=== PATIENT | male | born 1950 | race Caucasian/White ===

== ENCOUNTER 2020-05-28 19:52 | Inpatient (IN) | payer OTHER ==
[~2020-05-28] VITALS: Ht 180.3 cm; Wt 115.2 kg
[2020-05-28 21:41] LABS: Basophils # (auto) 0 10 ^3/uL (0-0.2); Basophils % (auto) 0.3 % (0.0-2.0); Eosinophils # (auto) 0.1 10 ^3/uL (0-0.8)
[2020-05-28 21:43] LABS: Eosinophils % (auto) 0.8 % (0.0-7.0); Hematocrit 23.9 % (41.0-53.0); Mean Corpuscular Hgb Conc. 33.4 g/dL (32.0-36.0); Monocytes # (auto) 0.6 10 ^3/uL (0-1.3); Monocytes % (auto) 3.8 % (0.0-12.0); Neutrophils # (auto) 13.2 10 ^3/uL (1.6-8.6); Neutrophils % (auto) 88.1 % (37.0-80.0); Nucleated Red Blood Cells % 0.1 %; Platelet Count (auto) 126 10^3/uL (140-450); Red Blood Cells 2.28 10^6/uL (4.5-5.90); Red Cell Distribution Width 18.4 % (11.8-14.3)
[2020-05-28 21:52] LABS: Albumin 2.2 g/dL (3.4-5.0); BUN/Creatinine Ratio 10.8; Calcium 7.5 mg/dL (8.5-10.1); Potassium 4.3 mmol/L (3.5-5.1)
[2020-05-28 21:55] LABS: Bilirubin, Total 0.6 mg/dL (0.2-1.0); Lactic Acid w/Reflex 6.5 mmol/L (0.4-2.0); Total Protein 4.9 g/dL (6.4-8.2)
[2020-05-28] MEDS ORDERED: VANCOMYCIN 1GM/250ML 250 ML IV ONE (22:15)
[2020-05-28] MEDS ORDERED: SODIUM CHLORIDE 0.9% 1,000 ML IV ONE (22:15)
[2020-05-28 22:36] LABS: INR 1.13 (0.9-1.15); Partial Thromboplastin Time 34.2 sec (23.0-31.2)
[2020-05-28] MEDS ORDERED: PANTOPRAZOLE 40mg/50ML NS AE 50 ML IV ONE (23:00)
[2020-05-28] MEDS ORDERED: PANTOPRAZOLE 40 MG/10 ML VIAL INJ IV ONE (23:00)
[2020-05-28 23:30] VITALS: BP 100/52
[2020-05-28] MEDS ORDERED: PIPERACILLIN-TAZOB 3.375GM 100 ML IV ONE (23:30)
[2020-05-28 23:45] VITALS: BP 97/50
[2020-05-29] VITALS (8 sets, daily range): BP systolic 97–139; BP diastolic 39–96
[2020-05-29] MEDS ORDERED: ALBUMIN 5% 250 ML IV ONE (05:15)
[2020-05-29] MEDS ORDERED: NITROGLYCERIN 0.4 MG SL TAB SL PRN (05:15)
[2020-05-29] MEDS ORDERED: VANCOMYCIN PER PHARMACY 0 MG IV SCH (05:15)
[2020-05-29] MEDS ORDERED: ONDANSETRON HCL 4 MG/2 ML VIAL IV PRN (05:15)
[2020-05-29] MEDS ORDERED: ACETAMINOPHEN 325 MG TAB PO PRN (05:15)
[2020-05-29] MEDS ORDERED: HYDROcodone-ACET 5/325MG TAB PO PRN (05:15)
[2020-05-29] MEDS ORDERED: MORPHINE SULF INJ 2 MG/ML SYRINGE 1ML IV PRN (05:15)
[2020-05-29 06:32] LABS: Lactic Acid w/Reflex 2.1 mmol/L (0.4-2.0)
[2020-05-29] MEDS: SODIUM CHLORIDE 0.9% 1,000 ML IV SCH ×2 (08:18→21:55)
[2020-05-29 09:00] LABS: Basophils # (auto) 0.1 10 ^3/uL (0-0.2); Basophils % (auto) 0.2 % (0.0-2.0); Eosinophils # (auto) 0 10 ^3/uL (0-0.8); Hematocrit 27.3 % (41.0-53.0); Hemoglobin 9.4 g/dL (13.5-17.5); Lymphocytes # (auto) 0.9 10 ^3/uL (0.4-5.4); Lymphocytes % (auto) 3.8 % (10.0-50.0); Mean Corpuscular Hemoglobin 33.3 pg (28.0-32.0); Mean Corpuscular Hgb Conc. 34.3 g/dL (32.0-36.0); Mean Corpuscular Volume 97.1 fL (80.0-100.0); Monocytes # (auto) 1.6 10 ^3/uL (0-1.3); Monocytes % (auto) 6.7 % (0.0-12.0); Neutrophils # (auto) 20.7 10 ^3/uL (1.6-8.6); Neutrophils % (auto) 89.3 % (37.0-80.0); Nucleated Red Blood Cells % 0.1 %; Platelet Count (auto) 95 10^3/uL (140-450); Red Blood Cells 2.81 10^6/uL (4.5-5.90); Red Cell Distribution Width 19.6 % (11.8-14.3); White Blood Cell 23.2 10^3/uL (4.4-10.8)
[2020-05-29 09:04] LABS: BUN/Creatinine Ratio 14.5; Calcium 6.7 mg/dL (8.5-10.1)
[2020-05-29 09:07] LABS: Total Protein 4.5 g/dL (6.4-8.2)
[2020-05-29] MEDS: PIPERACILLIN-TAZOB 2.25GM 50 ML IV SCH ×2 (10:15→22:40)
[2020-05-29] MEDS: PANTOPRAZOLE 40 MG/10 ML VIAL INJ IV SCH ×2 (10:15→22:39)
[2020-05-29 12:59] LABS: Urine Bacteria NONE SEEN /hpf (None Seen); Urine Blood Negative /uL (Negative); Urine Specific Gravity 1.022 (1.001-1.035); Urine WBC <1 /hpf (0 - 3)
[2020-05-29] MEDS ORDERED: GOLYTELY 4L KIT PO ONE (13:00)
[2020-05-29] MEDS: VANCOMYCIN 750mg/250ml 250 ML IV SCH (14:14)
[2020-05-29] MEDS ORDERED: PROP10TA57 PO (14:45)
[2020-05-29] MEDS ORDERED: FERR-20 PO (14:45)
[2020-05-29] MEDS ORDERED: PANT40TA2 PO (14:45)
[2020-05-29] MEDS ORDERED: SUCR1TAB PO (14:45)
[2020-05-29] MEDS ORDERED: [UNRECOGNIZED DRUG - CODE] OR (14:45)
[2020-05-29] MEDS ORDERED: VANCOMYCIN HCL 125MG/5ML ORAL SOL PO SCH (22:00)
[2020-05-29] MEDS: VANCOMYCIN HCL 125MG/5ML ORAL SOL PO SCH (22:00)
[2020-05-30] VITALS (8 sets, daily range): BP systolic 101–133; BP diastolic 53–68
[2020-05-30] MEDS: VANCOMYCIN 750mg/250ml 250 ML IV SCH (00:18)
[2020-05-30] MEDS: VANCOMYCIN HCL 125MG/5ML ORAL SOL PO SCH ×4 (06:00→22:36)
[2020-05-30 08:32] LABS: Basophils # (auto) 0 10 ^3/uL (0-0.2); Eosinophils # (auto) 0 10 ^3/uL (0-0.8); Hemoglobin 8.2 g/dL (13.5-17.5)
[2020-05-30 08:34] LABS: Hematocrit 23.8 % (41.0-53.0); Lymphocytes # (auto) 1.1 10 ^3/uL (0.4-5.4); Lymphocytes % (auto) 8.8 % (10.0-50.0); Mean Corpuscular Hemoglobin 33.4 pg (28.0-32.0); Mean Corpuscular Hgb Conc. 34.4 g/dL (32.0-36.0); Mean Corpuscular Volume 97.2 fL (80.0-100.0); Monocytes # (auto) 1.4 10 ^3/uL (0-1.3); Monocytes % (auto) 10.5 % (0.0-12.0); Neutrophils # (auto) 10.4 10 ^3/uL (1.6-8.6); Neutrophils % (auto) 80.7 % (37.0-80.0); Nucleated Red Blood Cells % 0.2 %; Platelet Count (auto) 85 10^3/uL (140-450); Red Blood Cells 2.45 10^6/uL (4.5-5.90); Red Cell Distribution Width 19.4 % (11.8-14.3); White Blood Cell 12.9 10^3/uL (4.4-10.8)
[2020-05-30 08:41] LABS: Lactic Acid w/Reflex 2.1 mmol/L (0.4-2.0)
[2020-05-30 08:43] LABS: Potassium 3.1 mmol/L (3.5-5.1)
[2020-05-30 08:51] LABS: Albumin 2.1 g/dL (3.4-5.0); Calcium 7.2 mg/dL (8.5-10.1)
[2020-05-30 08:53] LABS: Bilirubin, Total 0.8 mg/dL (0.2-1.0); Total Protein 4.7 g/dL (6.4-8.2)
[2020-05-30] MEDS: PIPERACILLIN-TAZOB 2.25GM 50 ML IV SCH (10:32)
[2020-05-30] MEDS: PANTOPRAZOLE 40 MG/10 ML VIAL INJ IV SCH ×2 (10:33→22:36)
[2020-05-30] MEDS: SODIUM CHLORIDE 0.9% 1,000 ML IV SCH (15:53)
[2020-05-30] MEDS: MUPIROCIN 2% OINT 15gm or 22gm EACHNOSTRI SCH (22:30)
[2020-05-31 05:00] VITALS: BP 125/57
[2020-05-31] MEDS: VANCOMYCIN HCL 125MG/5ML ORAL SOL PO SCH ×4 (06:00→21:20)
[2020-05-31 08:00] VITALS: BP 127/65
[2020-05-31] MEDS ORDERED: diphenhdrAMINE HCL 50 MG/1 ML VL ONE (08:18)
[2020-05-31] MEDS ORDERED: MIDAZOLAM HCL 5 MG/ML-1ML VIAL ONE (08:18)
[2020-05-31] MEDS ORDERED: fentaNYL CITRATE 100 MCG/2 ML VL ONE (08:18)
[2020-05-31 08:45] VITALS: BP 127/65
[2020-05-31] MEDS: MUPIROCIN 2% OINT 15gm or 22gm EACHNOSTRI SCH ×2 (11:30→21:20)
[2020-05-31] MEDS: PANTOPRAZOLE 40 MG/10 ML VIAL INJ IV SCH ×2 (11:30→21:20)
[2020-05-31 12:56] VITALS: BP 117/52
[2020-05-31] MEDS ORDERED: fentaNYL CITRATE 100 MCG/2 ML VL IV ONE (13:35)
[2020-05-31] MEDS ORDERED: MIDAZOLAM HCL 5 MG/ML-1ML VIAL IV ONE (13:35)
[2020-05-31] MEDS ORDERED: VANC125PO PO (15:06)
[2020-05-31 15:43] LABS: Basophils # (auto) 0.1 10 ^3/uL (0-0.2); Eosinophils # (auto) 0.1 10 ^3/uL (0-0.8); Hematocrit 28.6 % (41.0-53.0); Hemoglobin 9.7 g/dL (13.5-17.5); Lymphocytes # (auto) 1.1 10 ^3/uL (0.4-5.4); Lymphocytes % (auto) 18.7 % (10.0-50.0); Mean Corpuscular Hemoglobin 32.4 pg (28.0-32.0); Mean Corpuscular Hgb Conc. 33.8 g/dL (32.0-36.0); Monocytes # (auto) 0.3 10 ^3/uL (0-1.3); Monocytes % (auto) 5.6 % (0.0-12.0); Neutrophils # (auto) 4.4 10 ^3/uL (1.6-8.6); Neutrophils % (auto) 73.7 % (37.0-80.0); Platelet Count (auto) 61 10^3/uL (140-450); Red Blood Cells 2.98 10^6/uL (4.5-5.90); Red Cell Distribution Width 19.2 % (11.8-14.3)
[2020-05-31 16:02] LABS: BUN/Creatinine Ratio 20.8; Calcium 7.5 mg/dL (8.5-10.1)
[2020-05-31 16:05] LABS: Potassium 2.8 mmol/L (3.5-5.1)
[2020-05-31 16:42] VITALS: BP 150/65
[2020-05-31] MEDS ORDERED: POTASSIUM CHL 20 Meq TABLET PO ONE (17:45)
[2020-05-31] MEDS ORDERED: POTASSIUM CHL 20MEQ/100ML 100 ML IV ONE (17:45)
[2020-05-31 22:25] LABS: BUN/Creatinine Ratio 20.4; Calcium 6.9 mg/dL (8.5-10.1); Potassium 3.1 mmol/L (3.5-5.1)
[2020-05-31 22:29] VITALS: BP 147/59
[2020-06-01] MEDS ORDERED: POTASSIUM CHL 20 Meq TABLET PO ONE (01:30)
[2020-06-01] MEDS ORDERED: POTASSIUM CHL 20MEQ/100ML 100 ML IV ONE (01:30)
[2020-06-01 05:30] VITALS: BP 128/55
[2020-06-01] MEDS: VANCOMYCIN HCL 125MG/5ML ORAL SOL PO SCH ×2 (06:32→12:11)
[2020-06-01 07:40] LABS: Calcium 7.1 mg/dL (8.5-10.1); Potassium 3.6 mmol/L (3.5-5.1)
[2020-06-01 09:00] VITALS: BP 152/77
[2020-06-01] MEDS: PANTOPRAZOLE 40 MG/10 ML VIAL INJ IV SCH (09:47)
[2020-06-01] MEDS: MUPIROCIN 2% OINT 15gm or 22gm EACHNOSTRI SCH (09:47)
== END 2020-06-01 15:20 | disposition home health service (06) | DRG 871 ==
LOC: ER 19:52 → EDBD 19:52 → TELE 19:53 → TELE-CENTR 05-29 13:25
PROVIDERS: ADMIT Nurse Practitioner Family; ATTEND Internal Medicine
PROC: 30230N1 Transfusion of Nonautologous Red Blood Cells into Peripheral Vein, Open Approach (ICD-10-PCS; 2020-05-29)
PROC: 30233K1 Transfusion of Nonautologous Frozen Plasma into Peripheral Vein, Percutaneous Approach (ICD-10-PCS; 2020-05-29)
PROC: 0DBL8ZX Excision of Transverse Colon, Via Natural or Artificial Opening Endoscopic, Diagnostic (ICD-10-PCS; 2020-05-31)
PROC: 0DBH8ZX Excision of Cecum, Via Natural or Artificial Opening Endoscopic, Diagnostic (ICD-10-PCS; principal; 2020-05-31 13:26)
DX: A41.4 Sepsis due to anaerobes (principal); K63.1 Perforation of intestine (nontraumatic); I85.11 Secondary esophageal varices with bleeding; D68.9 Coagulation defect, unspecified; K76.6 Portal hypertension; A04.72 Enterocolitis due to Clostridium difficile, not specified as recurrent; R71.0 Precipitous drop in hematocrit; Z20.822 Contact with and (suspected) exposure to COVID-19; K70.30 Alcoholic cirrhosis of liver without ascites; I50.9 Heart failure, unspecified; I95.9 Hypotension, unspecified; N28.9 Disorder of kidney and ureter, unspecified; K31.89 Other diseases of stomach and duodenum; Z79.899 Other long term (current) drug therapy
CPT/HCPCS: 36415; 45380; 74176; 80048; 80053; 80202; 81001; 82270; 83036; 83605; 83880; 84484; 85025; 85610; 85730; 86850; 86900; 86901; 86920; 87040; 87081; 87426; 87493; 93005; 96361; 96365; 96367; 96375; 99291; C9113; G0378; J2250; J2543; J3480

== ENCOUNTER 2020-06-03 19:04 | Inpatient (IN) | payer OTHER ==
[~2020-06-03] VITALS: Ht 180.3 cm; Wt 111.2 kg
[~2020-06-03 19:04] MED LIST: FERR-20 PO; PANT40TA2 PO; PROP10TA57 PO; SUCR1TAB PO; VANC125PO PO; [UNRECOGNIZED DRUG - CODE] OR
[2020-06-03] MEDS ORDERED: PANTOPRAZOLE 40 MG/10 ML VIAL INJ IV STA (19:11)
[2020-06-03 20:07] LABS: Basophils # (auto) 0 10 ^3/uL (0-0.2); Basophils % (auto) 0.5 % (0.0-2.0); Eosinophils # (auto) 0.2 10 ^3/uL (0-0.8); Mean Corpuscular Volume 95.4 fL (80.0-100.0); Monocytes # (auto) 0.8 10 ^3/uL (0-1.3)
[2020-06-03 20:09] LABS: Eosinophils % (auto) 3.1 % (0.0-7.0); Hematocrit 23.6 % (41.0-53.0); Hemoglobin 8.1 g/dL (13.5-17.5); Lymphocytes # (auto) 1.5 10 ^3/uL (0.4-5.4); Mean Corpuscular Hemoglobin 32.7 pg (28.0-32.0); Mean Corpuscular Hgb Conc. 34.3 g/dL (32.0-36.0); Monocytes % (auto) 10.3 % (0.0-12.0); Neutrophils % (auto) 66.1 % (37.0-80.0); Platelet Count (auto) 122 10^3/uL (140-450); Red Blood Cells 2.47 10^6/uL (4.5-5.90); Red Cell Distribution Width 19.2 % (11.8-14.3); White Blood Cell 7.6 10^3/uL (4.4-10.8)
[2020-06-03 20:22] LABS: Anion Gap 5 (5-15); Blood Urea Nitrogen 16 mg/dL (7-18); Calcium 7.4 mg/dL (8.5-10.1); Carbon Dioxide 25 mmol/L (21-32); Chloride 111 mmol/L (98-107); Glucose 120 mg/dL (74-106); Lipase 246 U/L (73-393); Potassium 3.8 mmol/L (3.5-5.1); Sodium 141 mmol/L (136-145)
[2020-06-03 20:27] LABS: Alanine Aminotransferase 70 U/L (16-61); Alkaline Phosphatase 73 U/L (45-117); Amylase 96 U/L (25-115); Aspartate Aminotransferase 23 U/L (15-37); BUN/Creatinine Ratio 15.5; Bilirubin, Total 0.4 mg/dL (0.2-1.0); GFR African American 92 mL/min; GFR Non-African American 76 mL/min
[2020-06-03 20:28] LABS: INR 1.08 (0.9-1.15)
[2020-06-04] MEDS ORDERED: ACETAMINOPHEN 325 MG TAB PO PRN (01:00)
[2020-06-04] MEDS ORDERED: ONDANSETRON HCL 4 MG/2 ML VIAL IV PRN (01:00)
[2020-06-04] MEDS ORDERED: NITROGLYCERIN 0.4 MG SL TAB SL PRN (01:00)
[2020-06-04] MEDS ORDERED: MORPHINE SULF INJ 2 MG/ML SYRINGE 1ML IV PRN (01:00)
[2020-06-04] MEDS ORDERED: DOCUSATE SOD 100 MG CAP PO PRN (01:00)
[2020-06-04] MEDS: SODIUM CHLORIDE 0.9% 1,000 ML IV SCH ×2 (02:28→18:00)
[2020-06-04] MEDS ORDERED: LISI30TA4 PO (07:13)
[2020-06-04] MEDS ORDERED: CARB10TA7 PO (07:13)
[2020-06-04] MEDS ORDERED: AMLO-496 PO (07:13)
[2020-06-04 09:54] VITALS: BP 150/65
[2020-06-04] MEDS: PANTOPRAZOLE 40 MG/10 ML VIAL INJ IV SCH ×2 (12:06→22:22)
[2020-06-04] MEDS: MULTIPLE VITAMIN TAB PO SCH (12:06)
[2020-06-04] MEDS: ASCORBIC ACID 500 MG TAB PO SCH ×2 (12:07→22:22)
[2020-06-04 12:45] VITALS: BP 146/68
[2020-06-04 13:00] VITALS: BP 146/98
[2020-06-04 13:09] VITALS: BP 143/56
[2020-06-04 17:00] VITALS: BP_SYST 149; BP_SYST 154; BP_DIAS 64
[2020-06-04 22:00] VITALS: BP 147/55
[2020-06-05] VITALS (12 sets, daily range): BP systolic 116–140; BP diastolic 50–66
[2020-06-05 05:51] LABS: Basophils # (auto) 0 10 ^3/uL (0-0.2); Eosinophils # (auto) 0.1 10 ^3/uL (0-0.8); Lymphocytes % (auto) 37.3 % (10.0-50.0); Mean Corpuscular Volume 94.5 fL (80.0-100.0); Monocytes # (auto) 0.3 10 ^3/uL (0-1.3); Neutrophils # (auto) 1.3 10 ^3/uL (1.6-8.6); White Blood Cell 2.6 10^3/uL (4.4-10.8)
[2020-06-05 05:53] LABS: Basophils % (auto) 0.7 % (0.0-2.0); Eosinophils % (auto) 2.4 % (0.0-7.0); Hematocrit 19.9 % (41.0-53.0); Mean Corpuscular Hemoglobin 33.3 pg (28.0-32.0); Mean Corpuscular Hgb Conc. 35.2 g/dL (32.0-36.0); Monocytes % (auto) 10.4 % (0.0-12.0); Neutrophils % (auto) 49.2 % (37.0-80.0); Nucleated Red Blood Cells % 0.2 %; Platelet Count (auto) 73 10^3/uL (140-450); Red Cell Distribution Width 19.4 % (11.8-14.3)
[2020-06-05 06:21] LABS: BUN/Creatinine Ratio 13.8; Calcium 7.8 mg/dL (8.5-10.1); Potassium 3.9 mmol/L (3.5-5.1)
[2020-06-05 06:24] LABS: Total Protein 4.6 g/dL (6.4-8.2)
[2020-06-05] MEDS: PANTOPRAZOLE 40 MG/10 ML VIAL INJ IV SCH ×2 (10:15→22:21)
[2020-06-05] MEDS: ASCORBIC ACID 500 MG TAB PO SCH ×2 (10:15→22:21)
[2020-06-05] MEDS: MULTIPLE VITAMIN TAB PO SCH (10:15)
[2020-06-05] MEDS: SODIUM CHLORIDE 0.9% 1,000 ML IV SCH (10:16)
[2020-06-05] MEDS: HYDROcodone-ACET 5/325MG TAB PO PRN (14:37)
[2020-06-06] VITALS (14 sets, daily range): BP systolic 103–147; BP diastolic 50–68
[2020-06-06] MEDS: SODIUM CHLORIDE 0.9% 1,000 ML IV SCH ×2 (03:03→19:40)
[2020-06-06 06:04] LABS: Basophils # (auto) 0 10 ^3/uL (0-0.2); Basophils % (auto) 0.4 % (0.0-2.0); Eosinophils # (auto) 0.1 10 ^3/uL (0-0.8); Eosinophils % (auto) 1.9 % (0.0-7.0); Hemoglobin 7.1 g/dL (13.5-17.5); Lymphocytes # (auto) 1.4 10 ^3/uL (0.4-5.4); Mean Corpuscular Volume 95.5 fL (80.0-100.0); Monocytes # (auto) 0.4 10 ^3/uL (0-1.3); Neutrophils # (auto) 2.3 10 ^3/uL (1.6-8.6); White Blood Cell 4.2 10^3/uL (4.4-10.8)
[2020-06-06 06:06] LABS: Hematocrit 20.3 % (41.0-53.0); Lymphocytes % (auto) 32.7 % (10.0-50.0); Mean Corpuscular Hemoglobin 33.3 pg (28.0-32.0); Mean Corpuscular Hgb Conc. 34.8 g/dL (32.0-36.0); Monocytes % (auto) 10.1 % (0.0-12.0); Neutrophils % (auto) 54.9 % (37.0-80.0); Platelet Count (auto) 96 10^3/uL (140-450); Red Blood Cells 2.12 10^6/uL (4.5-5.90); Red Cell Distribution Width 18.4 % (11.8-14.3)
[2020-06-06] MEDS: ASCORBIC ACID 500 MG TAB PO SCH ×2 (09:21→22:47)
[2020-06-06] MEDS: MULTIPLE VITAMIN TAB PO SCH (09:21)
[2020-06-06] MEDS: PANTOPRAZOLE 40 MG/10 ML VIAL INJ IV SCH (09:21)
[2020-06-06] MEDS: HYDROcodone-ACET 5/325MG TAB PO PRN ×2 (09:23→21:39)
[2020-06-06 12:44] LABS: Potassium 4.4 mmol/L (3.5-5.1)
[2020-06-06] MEDS ORDERED: METOCLOPRAMIDE HCL 5MG/ml INJ 2ml VIAL IV ONE (12:45)
[2020-06-06 12:49] LABS: BUN/Creatinine Ratio 18.4; Calcium 7.5 mg/dL (8.5-10.1)
[2020-06-06] MEDS ORDERED: LIDOCAINE VISCOUS 2% 15ML UD ONE (13:19)
[2020-06-06] MEDS ORDERED: MIDAZOLAM HCL 5 MG/ML-1ML VIAL ONE (13:19)
[2020-06-06] MEDS ORDERED: diphenhdrAMINE HCL 50 MG/1 ML VL ONE (13:20)
[2020-06-06] MEDS ORDERED: SIMETHICONE 40 MG/0.6 ML ORAL DROP ONE (13:22)
[2020-06-06] MEDS: fentaNYL CITRATE 100 MCG/2 ML VL ONE ×2 (13:48→13:51)
[2020-06-06] MEDS: SUCRALFATE 1 GM/10 ML ORAL SUSP PO SCH ×2 (17:48→21:38)
[2020-06-06] MEDS: PANTOPRAZOLE 80 MG in SODIUM CHL 0.9% 80 ML IV SCH (21:39)
[2020-06-06] MEDS ORDERED: PANTOPRAZOLE 40 MG/10 ML VIAL INJ IV SCH (22:00)
[2020-06-07 05:00] VITALS: BP 116/63
[2020-06-07] MEDS: SUCRALFATE 1 GM/10 ML ORAL SUSP PO SCH ×4 (06:40→21:40)
[2020-06-07 07:14] LABS: Basophils # (auto) 0 10 ^3/uL (0-0.2); Eosinophils # (auto) 0.1 10 ^3/uL (0-0.8); Hemoglobin 7.5 g/dL (13.5-17.5); Mean Corpuscular Hemoglobin 33.2 pg (28.0-32.0); Monocytes # (auto) 0.3 10 ^3/uL (0-1.3); Neutrophils # (auto) 1.3 10 ^3/uL (1.6-8.6); Red Cell Distribution Width 17.9 % (11.8-14.3); White Blood Cell 2.7 10^3/uL (4.4-10.8)
[2020-06-07 07:18] LABS: Basophils % (auto) 0.5 % (0.0-2.0); Hematocrit 21.5 % (41.0-53.0); Lymphocytes # (auto) 1.1 10 ^3/uL (0.4-5.4); Lymphocytes % (auto) 39.1 % (10.0-50.0); Mean Corpuscular Hgb Conc. 34.9 g/dL (32.0-36.0); Mean Corpuscular Volume 95.1 fL (80.0-100.0); Neutrophils % (auto) 48.4 % (37.0-80.0); Nucleated Red Blood Cells % 0.2 %; Platelet Count (auto) 82 10^3/uL (140-450); Red Blood Cells 2.26 10^6/uL (4.5-5.90)
[2020-06-07 07:22] LABS: BUN/Creatinine Ratio 13.5; Calcium 7.8 mg/dL (8.5-10.1); Magnesium 2.2 mg/dL (1.6-2.6); Potassium 3.9 mmol/L (3.5-5.1)
[2020-06-07 09:00] VITALS: BP 156/55
[2020-06-07 09:38] LABS: Hepatitis B Surface Antibody Negative
[2020-06-07] MEDS: ASCORBIC ACID 500 MG TAB PO SCH ×2 (10:00→21:40)
[2020-06-07 10:07] LABS: Hepatitis A Total Antibody Positive
[2020-06-07 10:36] LABS: Hepatitis C Antibody Negative (Negative)
[2020-06-07 10:37] LABS: Hepatitis B Core Total AB Negative; Hepatitis B Surface Antigen Negative (Negative)
[2020-06-07] MEDS: PANTOPRAZOLE 80 MG in SODIUM CHL 0.9% 80 ML IV SCH ×2 (10:46→21:40)
[2020-06-07] MEDS: MULTIPLE VITAMIN TAB PO SCH (10:46)
[2020-06-07] MEDS: SODIUM CHLORIDE 0.9% 1,000 ML IV SCH (12:35)
[2020-06-07 13:00] VITALS: BP 130/57
[2020-06-07 17:00] VITALS: BP 130/58
[2020-06-07] MEDS: HYDROcodone-ACET 5/325MG TAB PO PRN (21:42)
[2020-06-07 22:15] VITALS: BP 137/61
[2020-06-08 05:00] VITALS: BP 149/67
[2020-06-08] MEDS: SODIUM CHLORIDE 0.9% 1,000 ML IV SCH (05:00)
[2020-06-08] MEDS: SUCRALFATE 1 GM/10 ML ORAL SUSP PO SCH ×3 (06:05→17:00)
[2020-06-08 06:57] LABS: Basophils # (auto) 0 10 ^3/uL (0-0.2); Eosinophils # (auto) 0.1 10 ^3/uL (0-0.8); Hemoglobin 8.3 g/dL (13.5-17.5); Mean Corpuscular Hemoglobin 33.6 pg (28.0-32.0); Mean Corpuscular Hgb Conc. 34.6 g/dL (32.0-36.0); Mean Corpuscular Volume 97.1 fL (80.0-100.0); Neutrophils # (auto) 1.9 10 ^3/uL (1.6-8.6)
[2020-06-08 07:00] LABS: Basophils % (auto) 0.8 % (0.0-2.0); Eosinophils % (auto) 2.6 % (0.0-7.0); Hematocrit 24.1 % (41.0-53.0); Lymphocytes # (auto) 1.3 10 ^3/uL (0.4-5.4); Lymphocytes % (auto) 37.2 % (10.0-50.0); Monocytes # (auto) 0.2 10 ^3/uL (0-1.3); Monocytes % (auto) 6.7 % (0.0-12.0); Neutrophils % (auto) 52.7 % (37.0-80.0); Nucleated Red Blood Cells % 0.2 %; Platelet Count (auto) 105 10^3/uL (140-450); Red Blood Cells 2.48 10^6/uL (4.5-5.90); Red Cell Distribution Width 18.4 % (11.8-14.3); White Blood Cell 3.6 10^3/uL (4.4-10.8)
[2020-06-08 07:06] LABS: Potassium 3.8 mmol/L (3.5-5.1)
[2020-06-08 07:17] LABS: BUN/Creatinine Ratio 7.6; Calcium 8.2 mg/dL (8.5-10.1); Magnesium 2.2 mg/dL (1.6-2.6)
[2020-06-08 09:00] VITALS: BP 142/65
[2020-06-08] MEDS: ASCORBIC ACID 500 MG TAB PO SCH (10:32)
[2020-06-08] MEDS: MULTIPLE VITAMIN TAB PO SCH (10:32)
[2020-06-08] MEDS: PANTOPRAZOLE 80 MG in SODIUM CHL 0.9% 80 ML IV SCH (11:05)
[2020-06-08 13:00] VITALS: BP 141/60
[2020-06-08 15:44] VITALS: BP 142/62
[2020-06-08 16:40] VITALS: BP 140/53
== END 2020-06-08 17:45 | disposition home health service (06) | DRG 378 ==
LOC: ER 19:04 → EDBD 19:04 → TELE 19:05 → TELE-EAST 06-04 09:22
PROVIDERS: ADMIT Nurse Practitioner Family; ATTEND Internal Medicine
PROC: 30233N1 Transfusion of Nonautologous Red Blood Cells into Peripheral Vein, Percutaneous Approach (ICD-10-PCS; 2020-06-04)
PROC: 30233K1 Transfusion of Nonautologous Frozen Plasma into Peripheral Vein, Percutaneous Approach (ICD-10-PCS; 2020-06-05)
PROC: 0DB88ZX Excision of Small Intestine, Via Natural or Artificial Opening Endoscopic, Diagnostic (ICD-10-PCS; 2020-06-06)
PROC: 0DB68ZX Excision of Stomach, Via Natural or Artificial Opening Endoscopic, Diagnostic (ICD-10-PCS; principal; 2020-06-06 13:49)
DX: K25.4 Chronic or unspecified gastric ulcer with hemorrhage (principal); J90 Pleural effusion, not elsewhere classified; A04.72 Enterocolitis due to Clostridium difficile, not specified as recurrent; D61.818 Other pancytopenia; K76.6 Portal hypertension; E44.0 Moderate protein-calorie malnutrition; K22.11 Ulcer of esophagus with bleeding; Z20.822 Contact with and (suspected) exposure to COVID-19; F10.20 Alcohol dependence, uncomplicated; K31.89 Other diseases of stomach and duodenum; Y90.9 Presence of alcohol in blood, level not specified; E78.00 Pure hypercholesterolemia, unspecified; I10 Essential (primary) hypertension; E11.9 Type 2 diabetes mellitus without complications; K70.9 Alcoholic liver disease, unspecified; F32.9 Major depressive disorder, single episode, unspecified; E78.5 Hyperlipidemia, unspecified; K29.71 Gastritis, unspecified, with bleeding; K44.9 Diaphragmatic hernia without obstruction or gangrene; K74.60 Unspecified cirrhosis of liver; Z87.11 Personal history of peptic ulcer disease; Z79.899 Other long term (current) drug therapy; Z68.29 Body mass index [BMI] 29.0-29.9, adult
CPT/HCPCS: 36415; 43239; 71045; 74176; 76700; 80048; 80053; 82105; 82150; 83690; 83735; 84484; 85025; 85610; 85730; 86704; 86706; 86708; 86803; 86850; 86870; 86900; 86901; 86902; 86920; 86922; 87081; 87340; 87426; 87493; 93005; 96361; 96374; 96376; C9113; G0378; J2250

== ENCOUNTER 2021-03-11 16:35 | Inpatient (IN) | payer OTHER ==
[~2021-03-11] VITALS: Ht 180.3 cm; Wt 94.8 kg
[~2021-03-11 16:35] MED LIST changes: +AMLO-496 PO; +CARB10TA21 PO; +LISI30TA4 PO
[2021-03-11 18:24] LABS: Basophils % (auto) 0.7 % (0.0-2.0); Eosinophils # (auto) 0.2 10 ^3/uL (0-0.8)
[2021-03-11 18:26] LABS: Basophils # (auto) 0.1 10 ^3/uL (0-0.2); Eosinophils % (auto) 3.2 % (0.0-7.0); Hematocrit 40.5 % (41.0-53.0); Hemoglobin 14.1 g/dL (13.5-17.5); Lymphocytes % (auto) 27.3 % (10.0-50.0); Mean Corpuscular Hemoglobin 36.5 pg (28.0-32.0); Mean Corpuscular Hgb Conc. 34.9 g/dL (32.0-36.0); Mean Corpuscular Volume 104.8 fL (80.0-100.0); Monocytes # (auto) 0.8 10 ^3/uL (0-1.3); Monocytes % (auto) 10.5 % (0.0-12.0); Neutrophils # (auto) 4.2 10 ^3/uL (1.6-8.6); Neutrophils % (auto) 58.3 % (37.0-80.0); Red Blood Cells 3.86 10^6/uL (4.5-5.90); Red Cell Distribution Width 13.5 % (11.8-14.3); White Blood Cell 7.1 10^3/uL (4.4-10.8)
[2021-03-11 18:36] LABS: Calcium 8.2 mg/dL (8.5-10.1); Potassium 4.3 mmol/L (3.5-5.1)
[2021-03-11 18:53] LABS: Bilirubin, Total 0.6 mg/dL (0.2-1.0)
[2021-03-11] MEDS ORDERED: DOCUSATE SOD 100 MG CAP PO PRN (21:30)
[2021-03-11] MEDS ORDERED: hydrALAZINE HCL 20 MG/ML VL IV PRN (21:30)
[2021-03-11] MEDS ORDERED: HYDROcodone-ACET 5/325MG TAB PO PRN (21:30)
[2021-03-11] MEDS ORDERED: ONDANSETRON HCL 4 MG/2 ML VIAL IV PRN (21:30)
[2021-03-11] MEDS ORDERED: ACETAMINOPHEN 325 MG TAB PO PRN (21:30)
[2021-03-11] MEDS ORDERED: MORPHINE SULFATE 4 MG/ML SYR/VIAL IV PRN (21:30)
[2021-03-11] MEDS ORDERED: ATORVASTATIN 20 MG TAB PO SCH (22:00)
[2021-03-11] MEDS: SODIUM CHLOR 0.9% PF (SALINE LOCK) 10ML VIAL/SYR IV SCH (22:09)
[2021-03-12] MEDS ORDERED: NITROGLYCERIN 0.4 MG SL TAB SL PRN
[2021-03-12] MEDS ORDERED: MORPHINE SULFATE INJECTION 2 MG/ML SYRG IV PRN
[2021-03-12 01:48] VITALS: BP 130/61
[2021-03-12 05:00] VITALS: BP 124/56
[2021-03-12] MEDS: SODIUM CHLOR 0.9% PF (SALINE LOCK) 10ML VIAL/SYR IV SCH ×2 (05:44→14:00)
[2021-03-12 09:00] VITALS: BP 132/54
[2021-03-12] MEDS ORDERED: ASPirin 81 mg TAB PO SCH (10:00)
[2021-03-12] MEDS ORDERED: FAMOTIDINE (10MG/ML) 2ML VL IV SCH (10:00)
[2021-03-12] MEDS ORDERED: POTA-220 PO (11:40)
[2021-03-12] MEDS ORDERED: FURO20TA3 PO (11:41)
[2021-03-12 13:00] VITALS: BP 134/56
[2021-03-12] MEDS ORDERED: SODIUM CHLORIDE 0.9% 1,000 ML IV SCH (15:30)
[2021-03-12 17:00] VITALS: BP 132/58
[2021-03-12 17:18] VITALS: BP 134/56
[2021-03-12 17:35] LABS: BUN/Creatinine Ratio 17.8; Potassium 4.2 mmol/L (3.5-5.1)
== END 2021-03-12 18:43 | disposition home or self-care (01) | DRG 313 ==
LOC: ER 16:35 → WEST WING 23:59 → ER 03-12 01:19 → TELE-WESTW 03-12 01:49
PROVIDERS: ADMIT Nurse Practitioner Family; ATTEND Nurse Practitioner Family
DX: R07.9 Chest pain, unspecified (principal); N17.0 Acute kidney failure with tubular necrosis; C44.90 Unspecified malignant neoplasm of skin, unspecified; E78.5 Hyperlipidemia, unspecified; E88.09 Other disorders of plasma-protein metabolism, not elsewhere classified; F17.210 Nicotine dependence, cigarettes, uncomplicated; I10 Essential (primary) hypertension; K70.9 Alcoholic liver disease, unspecified; Z98.1 Arthrodesis status; Z20.822 Contact with and (suspected) exposure to COVID-19
CPT/HCPCS: 36415; 70450; 71046; 80048; 80053; 84484; 85025; 87426; 93005; 93306; G0378; J3490

== ENCOUNTER 2022-10-22 13:39 | Inpatient (IN) | payer OTHER ==
[2022-10-22] VITALS (8 sets, daily range): BP systolic 0–108; BP diastolic 0–32
[~2022-10-22] VITALS: Ht 182.9 cm; Wt 128.0 kg
[~2022-10-22 13:39] MED LIST changes: -AMLO-496 PO; +AMLO1TAB23 PO; -FERR-20 PO; +FERR325T24 PO; +FURO20TA3 PO; -LISI30TA4 PO; +LISI30TA8 PO; +POTA-220 PO; -PROP10TA57 PO; -SUCR1TAB PO; -VANC125PO PO
[2022-10-22] MEDS ORDERED: ETOMIDATE (2MG/ML) 20ML VIAL IV ONE (13:45)
[2022-10-22] MEDS ORDERED: NALOXONE HCL 1MG/ML 2ML SYRINGE IV ONE (13:45)
[2022-10-22] MEDS ORDERED: ROCURONIUM 10MG/ML 10ML VIAL IV ONE (13:45)
[2022-10-22] MEDS ORDERED: SODIUM CHLORIDE 0.9% 2,000 ML IV ONE (14:00)
[2022-10-22] MEDS ORDERED: NOREPINEPHRINE 8 MG/250ML KIT 250 ML IV SCH (14:00)
[2022-10-22 14:03] LABS: Red Cell Distribution Width 14.8 % (11.8-14.3)
[2022-10-22 14:05] LABS: Hematocrit 21.3 % (41.0-53.0); Mean Corpuscular Hemoglobin 31.6 pg (28.0-32.0); Mean Corpuscular Hgb Conc. 31.2 g/dL (32.0-36.0); Mean Corpuscular Volume 101.2 fL (80.0-100.0); White Blood Cell 8.8 10^3/uL (4.4-10.8)
[2022-10-22] MEDS ORDERED: EPINEPHrine HCL 250 ML IV ONE (14:15)
[2022-10-22 14:25] LABS: Hemoglobin 6.6 g/dL (13.5-17.5)
[2022-10-22 14:27] LABS: Band Neutrophils % (manual) 0; Basophils % (manual) 0 (0.0-2.0); Blast Cells 0; Eosinophils % (manual) 0 (0-7); Metamyelocytes % 0; Myelocytes % 0; Promyelocytes % 0; Reactive Lymphocytes 0
[2022-10-22 14:34] LABS: Albumin 1.6 g/dL (3.4-5.0); Calcium 7.2 mg/dL (8.5-10.1); Potassium 4.5 mmol/L (3.5-5.1)
[2022-10-22 14:38] LABS: BUN/Creatinine Ratio 18.8 (10.0-20.0); Bilirubin, Total 0.3 mg/dL (0.2-1.0)
[2022-10-22] MEDS ORDERED: PANTOPRAZOLE 40mg/50ML NS AE 50 ML IV ONE (14:45)
[2022-10-22] MEDS ORDERED: OCTREOTIDE ACETATE 100 MCG in SODIUM CHL 0.9% 50 ML IV ONE (14:45)
[2022-10-22] MEDS ORDERED: PANTOPRAZOLE 80 MG in SODIUM CHL 0.9% 100 ML IV ONE (14:45)
[2022-10-22] MEDS ORDERED: OCTREOTIDE ACETATE 500 MCG in SODIUM CHL 0.9% 99 ML IV SCH (14:45)
[2022-10-22] MEDS ORDERED: VASOPRESSIN 20 UNITS in SODIUM CHL 0.9% 99 ML IV SCH (15:30)
[2022-10-22 15:38] LABS: Lymphocytes % (manual) 26 (10.0-50.0); Monocytes % (manual) 3 (0-12)
[2022-10-22] MEDS ORDERED: TRANEXAMIC ACID 10 ML ONE (15:39)
[2022-10-22] MEDS ORDERED: VASOPRESSIN 20 UNIT/ML ONE (15:44)
[2022-10-22] MEDS ORDERED: TRANEXAMIC ACID 1,000 MG in SODIUM CHL 0.9% 100 ML IV ONE (16:00)
[2022-10-22] MEDS ORDERED: EPINEPHrine HCL 1 MG/10 ML SYRG ONE (16:22)
[2022-10-22] MEDS ORDERED: PHENYLEPHRINE IV 250 ML IV ONE ×2 (16:52→17:00)
[2022-10-22] MEDS ORDERED: ALBUMIN 5% 250 ML IV ONE (17:00)
[2022-10-22] MEDS ORDERED: MORPHINE SULFATE INJ 2 MG/ml SYRG IV PRN ×3 (17:15→18:00)
[2022-10-22] MEDS ORDERED: LORazepam 2MG/ML-1ML VIAL IV PRN ×2 (17:15→18:15)
[2022-10-22] MEDS ORDERED: LORazepam 2MG/ML-1ML VIAL IM PRN (18:00)
[2022-10-22] MEDS ORDERED: SODIUM CHLORIDE 0.9% 1,000 ML IV SCH (18:00)
[2022-10-22] MEDS ORDERED: NITROGLYCERIN 0.4 MG SL TAB SL PRN (18:00)
[2022-10-22 18:01] LABS: Hematocrit 26.4 % (41.0-53.0)
[2022-10-22] MEDS ORDERED: LORazepam 2MG/ML-1ML VIAL ONE (18:09)
[2022-10-22] MEDS ORDERED: EPINEPHrine HCL 1 MG/10 ML SYRG IV ONE (18:36)
[2022-10-22] MEDS ORDERED: DEXTROSE 50% IV ONE (18:36)
[2022-10-22] MEDS ORDERED: SODIUM BICARBONATE 8.4% INJ 50ML SYRINGE IV ONE (18:36)
[2022-10-22] MEDS ORDERED: ATROPINE SULF 1 MG/10ml SYR IV ONE (18:36)
== END 2022-10-22 18:37 | DRG 208 ==
LOC: EDBD 13:39 → ER 13:39 → TELE 17:59
PROVIDERS: ADMIT Internal Medicine; ATTEND Internal Medicine
PROC: 5A1935Z Respiratory Ventilation, Less than 24 Consecutive Hours (ICD-10-PCS; principal; 2022-10-22)
PROC: 0BH17EZ Insertion of Endotracheal Airway into Trachea, Via Natural or Artificial Opening (ICD-10-PCS; 2022-10-22)
PROC: 4A143B0 Monitoring of Venous Pressure, Central, Percutaneous Approach (ICD-10-PCS; 2022-10-22)
PROC: 5A12012 Performance of Cardiac Output, Single, Manual (ICD-10-PCS; 2022-10-22)
PROC: 05HY33Z Insertion of Infusion Device into Upper Vein, Percutaneous Approach (ICD-10-PCS; 2022-10-22)
PROC: 30233K1 Transfusion of Nonautologous Frozen Plasma into Peripheral Vein, Percutaneous Approach (ICD-10-PCS; 2022-10-22)
PROC: 30233N1 Transfusion of Nonautologous Red Blood Cells into Peripheral Vein, Percutaneous Approach (ICD-10-PCS; 2022-10-22)
DX: J96.01 Acute respiratory failure with hypoxia (principal); G92.8 Other toxic encephalopathy; K92.2 Gastrointestinal hemorrhage, unspecified; D62 Acute posthemorrhagic anemia; E87.20 Acidosis, unspecified; G93.1 Anoxic brain damage, not elsewhere classified; N17.9 Acute kidney failure, unspecified; F17.210 Nicotine dependence, cigarettes, uncomplicated; I11.0 Hypertensive heart disease with heart failure; I35.0 Nonrheumatic aortic (valve) stenosis; I46.9 Cardiac arrest, cause unspecified; I50.9 Heart failure, unspecified; K74.60 Unspecified cirrhosis of liver; I95.9 Hypotension, unspecified; R34 Anuria and oliguria; E78.5 Hyperlipidemia, unspecified; G89.29 Other chronic pain; Z51.5 Encounter for palliative care; Z86.73 Personal history of transient ischemic attack (TIA), and cerebral infarction without residual deficits
CPT/HCPCS: 31500; 36415; 36430; 36556; 36600; 71045; 80053; 80320; 82140; 82805; 83615; 83880; 84484; 85007; 85014; 85018; 85027; 86850; 86900; 86901; 86902; 86922; 87040; 87070; 87205; 92950; 94002; 96365; 96367; 96368; 99291; C9113; G0378; J0171